=== PATIENT | male | born 1985 | race Caucasian/White ===

== ENCOUNTER 2018-12-10 12:58 | Emergency (ER) | payer OTHER ==
[~2018-12-10] VITALS: Ht 188 cm; Wt 81.6 kg
[2018-12-10 13:05] VITALS: Ht 188 cm; Wt 81.6 kg
[2018-12-10 14:42] LABS: CALCIUM 9.4 mg/dL (8.5-10.1); CARBON DIOXIDE 33.7 mmol/L (21-32); CHLORIDE SERUM 102 mmol/L (98-107); CREATININE SERUM 0.9 mg/dL (0.7-1.3); GFR1 > 60 mL/min; GLUCOSE SERUM 91 mg/dL (74-106); POTASSIUM SERUM 4.1 mmol/L (3.5-5.1); SODIUM SERUM 142 mmol/L (136-145)
[2018-12-10 14:44] LABS: ALBUMIN 4.4 g/dL (3.4-5.0); ALKALINE PHOSPHATASE 94 U/L (46-116); ALT/SGPT 23 U/L (16-63); AST/SGOT 20 U/L (15-37); C REACTIVE PROTEIN 2.1 mg/dL (<=0.9); TOTAL PROTEIN, SERUM 8.1 g/dL (6.4-8.2); URIC ACID 3.4 mg/dL (3.5-7.2)
[2018-12-10 15:04] LABS: BASOPHIL % 0.6 % (0-2); PLATELET COUNT 225 x10^3mcL (130-400); RED CELL DISTRIBUTION WIDTH 12.4 % (11.5-14.5)
[2018-12-10 15:09] LABS: AMPHETAMINE QUAL UR NONE DETECTED (See below)
[2018-12-10 16:15] VITALS: BP 124/70
== END 2018-12-10 16:15 | disposition home or self-care (01) ==
LOC: ED 12:58
PROVIDERS: Emergency Medicine
DX: L03.116 Cellulitis of left lower limb (principal)
CPT/HCPCS: 36415